=== PATIENT | female | born 1960 | race Caucasian/White ===

== ENCOUNTER → 2016-04-11 | Outpatient (CLI) | payer BC ==
[~2016-04-11] MED LIST: ADV25050 INHALATION; ALPR1TAB7 PO; FLUO20CA38 PO
--- NOTE | 2016-04-11 13:54 | RADRPT ---
PROCEDURE: US Thyroid. CLINICAL INDICATION: Enlarged thyroid. TECHNIQUE: High-resolution sonography of the thyroid was performed in the axial and sagittal plane s. COMPARISON: None. FINDINGS: The right lobe measures 3.9 x 1.3 x 1.3 cm. The left lobe measures 4.0 x 1.1 x 1.2 cm. The isthmus measures 0.1 cm. There is a hypoechoic nodule in the mid right lobe anteriorly medially measuring 1.1 x 0.7 x 0.9 cm. There is no other thyroid nodule. Thyroid echogenicity is normal. The thyroid is normal in size. IMPRESSION: 1. Hypoechoic nodule in the mid right lobe anteriorly measuring 1.1 cm in maximal dimension. Follo w-up ultrasound in 12 months advised. 2. Otherwise normal thyroid ultrasound. RPTAT: QQ .Ramirez Granados MD, Date Time Electronically viewed and signed by .Ramirez Granados MD, on 04/11/2016 13:53 .R/
== END | disposition home or self-care (01) ==
LOC: U/S 13:07
PROVIDERS: ATTEND Internal Medicine
DX: E04.1 Nontoxic single thyroid nodule (principal); E04.9 Nontoxic goiter, unspecified
CPT/HCPCS: 76536

== ENCOUNTER 2016-12-24 15:19 | Emergency (ER) | payer BC ==
[~2016-12-24] VITALS: Ht 152.4 cm; Wt 58.0 kg
[2016-12-24 15:22] VITALS: Ht 152.4 cm; Wt 58.0 kg
[2016-12-24] MEDS ORDERED: SOD CHLORIDE 0.9% 1,000 ML IV STA (16:06)
[2016-12-24] MEDS ORDERED: morphine 2 MG INJ IV STA (16:06)
[2016-12-24] MEDS ORDERED: ONDANSETRON 4 MG INJ IV STA ×2 (16:06→18:48)
--- NOTE | 2016-12-24 16:35 | ERD ---
ER Documentation Chief Complaint Date/Time DATE: 12/24/16 TIME: 16:31 Chief Complaint lt lower abd pain , lt side back pain since sunday HPI This is a 56-year-old female with a past medical history of asthma who presents to the emergency department complaining of lower back pain that has been present persistently for the past 48 hours. The patient denies any recent or remote trauma to her lower back. She states the pain began in the left flank region and has began to radiate to the left lower quadrant. The pain is exacerbated with movement. The pain is better when she lies supine. She has had no fevers or shaking or chills. She took Tylenol which improved the pain but did not completely resolve the pain. The patient states the pain is a sharp shooting pain. The pain is 8 out of 10 in intensity. She denies any similar episodes of the pain. She denies any frequency urgency or dysuria but did state she noticed warmth with urination. She denies any changes in her bladder or bowel frequency. She denies any saddle anesthesia. She denies any chest pain or pressure that radiates to the neck or back or jaw no shortness of breath at rest or exertion. ROS All systems reviewed and are negative except as per history of present illness. Medications Home Meds Active Scripts Cyclobenzaprine Hcl* (Cyclobenzaprine Hcl*) 10 Mg Tablet, 10 MG PO TID, #15 TAB Prov:JIM GONZALES 12/24/16 Reported Medications Alprazolam* (Alprazolam*) 1 Mg Tablet, 1 MG PO DAILY Y for ANXIETY, TAB 09/07/15 Fluoxetine Hcl* (Prozac*) 20 Mg Capsule, 20 MG PO DAILY, CAP 09/07/15 Salmeterol Xinaf/Fluticasone* (Advair*) 250-50 Diskus Inhaler, 1 INH INHALATION BID, #1 INHALER 09/07/15 Allergies Allergies: Coded Allergies: Sulfa (Sulfonamide Antibiotics) (Verified Allergy, Unknown, 04/18/14) aspirin (Verified Allergy, Unknown, 04/18/14) ibuprofen (Verified Allergy, Unknown, 04/18/14) PMhx/Soc Hx Respiratory Disorders: Yes (asthma) Hx Alcohol Use: No Hx Substance Use: No Hx Tobacco Use: No Smoking Status: Never smoker Physical Exam Vitals Vital Signs Date Time Temp Pulse Resp B/P Pulse Ox O2 Delivery O2 Flow Rate FiO2 12/24/16 19:50 67 16 121/74 99 Room Air 12/24/16 17:20 98.3 75 20 128/80 100 Room Air 12/24/16 15:22 99.0 101 18 139/77 98 Physical Exam Constitutional:Well-developed. Well-nourished. HEENT:Normocephalic. Atraumatic.Pupils were equal round reactive to light. Moist mucous membranes.No tonsillar exudates. Neck: No nuchal rigidity. No lymphadenopathy. No posterior cervical spine tenderness or step-offs. Respiratory: Not using accessory muscles of respiration.Lungs were clear to auscultation bilaterally. No rhonchi. No rales. No wheezing. Cardiovascular: Regular rate regular rhythm.No murmurs. No rubs were appreciated.S1, S2 normal. Distal pulses are palpable 2+ bilaterally. GI: Abdomen was soft. Left CVA tenderness with tenderness in the left lower quadrant. Non Distended. No pulsatile abdominal masses or bruits. No rebound. No guarding. Bowel sounds were present and normal. Muscle skeletal: Full range of motion of both the upper and lower extremities bilaterally.Normal muscle tone.No assymetrical calf tenderness or swelling. No tenderness with palpation or percussion of the thoracic or lumbar spinous processes Skin: No petechia, no purpura. No lesions on the palms or the soles of the feet. No maculopapular rash. NEURO: Patient was alert, awake, orientated x3.No facial droop. Gait observed and normal with no ataxia.Speech had regular rate and rhythm. No focal neurological deficits. Result Diagram: 12/24/16 1635 12/24/16 1635 Results 24 hrs Laboratory Tests Test 12/24/16 16:35 12/24/16 17:00 White Blood Count 11.410^3/ul Red Blood Count 4.9810^6/ul Hemoglobin 14.2g/dl Hematocrit 43.0% Mean Corpuscular Volume 86.3fl Mean Corpuscular Hemoglobin 28.5pg Mean Corpuscular Hemoglobin Concent 33.0g/dl Red Cell Distribution Width 12.5% Platelet Count 94426^3/UL Mean Platelet Volume 10.9fl Neutrophils % 67.0% Lymphocytes % 22.4% Monocytes % 6.4% Eosinophils % 2.9% Basophils % 0.5% Nucleated Red Blood Cells % 0.0/100WBC Neutrophils # 7.610^3/ul Lymphocytes # 2.610^3/ul Monocytes # 0.710^3/ul Eosinophils # 0.310^3/ul Basophils # 0.110^3/ul Nucleated Red Blood Cells # 0.010^3/ul Prothrombin Time 11.8Sec Prothrombin Time Ratio 0.9 INR International Normalized Ratio 0.87 Activated Partial Thromboplast Time 25.7Sec Sodium Level 143mmol/L Potassium Level 3.7mmol/L Chloride Level 105mmol/L Carbon Dioxide Level 28mmol/L Anion Gap 14 Blood Urea Nitrogen 14mg/dl Creatinine 0.79mg/dl Glucose Level 84mg/dl Calcium Level 9.6mg/dl Total Bilirubin 0.2mg/dl Direct Bilirubin 0.00mg/dl Indirect Bilirubin 0.2mg/dl Aspartate Amino Transf (AST/SGOT) 70IU/L Alanine Aminotransferase (ALT/SGPT) 104IU/L Alkaline Phosphatase 103IU/L Troponin I < 0.012ng/ml Total Protein 8.1g/dl Albumin 4.6g/dl Globulin 3.50g/dl Albumin/Globulin Ratio 1.31 Amylase Level 94U/L Lipase 122U/L Urine Color STRAW Urine Clarity CLEAR Urine pH 7.0 Urine Specific [place] 1.005 Urine Ketones NEGATIVEmg/dL Urine Nitrite NEGATIVEmg/dL Urine Bilirubin NEGATIVEmg/dL Urine Urobilinogen NEGATIVEmg/dL Urine Leukocyte Esterase NEGATIVELeu/ul Urine Hemoglobin NEGATIVEmg/dL Urine Glucose NEGATIVEmg/dL Urine Total Protein NEGATIVEmg/dl Current Medications Medications (Trade) Dose Ordered Sig/Edward Route PRN Reason Start Time Stop Time Status Last Admin Dose Admin Sodium Chloride (NS) 1,000 ml @ 1,000 mls/hr Q1H STAT IV 12/24/16 16:06 12/24/16 17:05 DC 12/24/16 16:58 Morphine Sulfate (morphine) 2 mg ONCE STAT IV 12/24/16 16:06 12/24/16 16:22 DC 12/24/16 16:27 Ondansetron HCl (Zofran Inj) 4 mg ONCE STAT IV 12/24/16 16:06 12/24/16 16:22 DC 12/24/16 16:27 Morphine Sulfate (morphine) 2 mg ONCE STAT IV 12/24/16 18:48 12/24/16 18:50 DC 12/24/16 18:56 Ondansetron HCl (Zofran Inj) 4 mg ONCE STAT IV 12/24/16 18:48 12/24/16 18:50 DC 12/24/16 18:56 Procedures/MDM The patient presented to the emergency department with back pain. My differential diagnosis included but was not limited to spinal origins of the pain such as fracture, osteomyelitis, epidural abscess, neoplasm, spondylolishtesis, discogenic, cauda equina syndrome or musculoligamentous. Nonspinal causes such as AAA, upper UTI, renal colic, aortic dissection, abdominal neoplasm were also considered as an etiology into their pain. Obtained a 12-lead EKG tracing to rule out atypical myocardial infarction. 12 Lead EKG tracing ordered and reviewed by myself showed: Normal sinus rhythm of 95 bpm and no arrhythmia. TX interval normal. QRS duration normal. No ST segment elevation No ST segment depression. No changes consistent with acute ischemia. She appeared to be in a significant amount discomfort. She was given intravenous morphine and Zofran for analgesia control. I did feel is necessary to obtain a CT scan without contrast to rule out obstructive uropathy. The scan reviewed by myself the radiologist indicated the followin. No acute inflammatory process seen in the abdomen or pelvis on this noncontrast examination. 2. Normal unenhanced appearance of the appendix. 3. Hiatal hernia. I also obtained an ultrasound of the pelvis to rule out a neoplastic mass as the patient is very concerned she has had a history of ovarian cyst. There is no evidence of hemorrhagic cyst. The patient's pain improved but did not completely resolved. I did indicate this to be likely muscle skeletal in origin with overlying muscle spasms. She was sent home with a muscle relaxant will follow up with her PCP. The patient was discharged home in fair condition. They were instructed to return to the emergency department at any time if there was any worsening of their condition. The patient stated they would follow up with their PCP in the next 24-48 hours to initiate a suitable medication regimen under the care of their PCP as well as to allow their PCP to monitor any drug reactions. The patient was discharged home with prescriptions after they gave informed consent to the new medication. They were also fully informed by myself on the adverse effects and adverse drug interactions in order to provide adequate safeguards to prevent possible adverse reactions to medications. Departure Diagnosis: Primary Impression: Flank pain Additional Impression: Back pain Back pain location: low back pain Chronicity: acute Back pain laterality: bilateral Sciatica presence: unspecified whether sciatica present Qualified Code: M54.5 - Acute bilateral low back pain, with sciatica presence unspecified Condition: JIM Thurman Dec 24, 2016 16:35
--- NOTE | 2016-12-24 16:54 | RADRPT ---
PROCEDURE: CT Abdomen and Pelvis without contrast. CLINICAL INDICATION: Abdominal pain TECHNIQUE: CT scan of the abdomen and pelvis without contrast was performed. The patient was scann ed without intravenous contrast. Coronal and sagittal reformatted images were obtained from the axi al source images. Use of iterative reconstruction technique was employed. Images were reviewed on a high-resolution PACS workstation. images. The calculated radiation dose measures 389.89 mGy centimet ers. The CTDI measures 7.28 mGy. One or more of the following dose reduction techniques were used: - Automated exposure control. - Adjustment of the mA and/or kV according to patient size . - Use of iterative reconstruction technique. Images were reviewed on a high-resolution PACS workstation COMPARISON: CT 09/07/2015 FINDINGS: CT abdomen: The lung bases are clear. The heart size is normal, without pericardial thickening or effusion. Th e liver is normal in size and density without focal mass or intrahepatic biliary dilatation. The sp price is normal in size and homogeneous in density. The stomach is partially collapsed, but is gross ly unremarkable. A moderate sized hiatal hernia is present. The pancreas as visualized is normal. T he gallbladder and biliary tree are unremarkable and there is no evidence for biliary dilatation. The adrenal glands are symmetric and normal. The kidneys are symmetrically unremarkable as well. N o renal calculus or obstructive uropathy or mass lesion is seen. The aorta is of normal caliber. Aortic vascular calcifications are present. Calcifications are seen of the distal spine artery is less likely a small focal aneurysm. There is no retroperitoneal lymph adenopathy. The keara hepatis region is clear. The bowel and mesentery, as visualized, are equally unremarkable. CT pelvis: The small bowel loops situated within the pelvis are unremarkable. The pelvic organs are normal. T he pelvic sidewalls and inguinal regions are clear. The sigmoid colon and rectum are not thickened or dilated. A normal appendix is identified. No mass, lymphadenopathy, or free fluid is seen. No a cute inflammation is seen. The surrounding osseous structures are remarkable for degenerative spondylosis of the spine. No ost eolytic or osteoblastic lesion is detected. IMPRESSION: 1. No acute inflammatory process seen in the abdomen or pelvis on this noncontrast examination. 2. Normal unenhanced appearance of the appendix. 3. Hiatal hernia. RPTAT: QQ .Jung Benavidez MD, MD Date Time Electronically viewed and signed by .Jung Benavidez MD, MD on 12/24/2016 16:53 .d/
[2016-12-24 17:07] LABS: ADD UMIC NO; UR ASCORBIC ACID 20 mg/dL (NEGATIVE); UR BILIRUBIN (Dip) NEGATIVE (NEGATIVE); UR BLOOD (Dip) NEGATIVE (NEGATIVE); UR CLARITY CLEAR (CLEAR); UR COLOR STRAW (YELLOW); UR GLUCOSE (Dip) NEGATIVE (NEGATIVE); UR KETONES (Dip) NEGATIVE (NEGATIVE); UR LEUKOCYTE ESTERASE (Dip) NEGATIVE Leu/ul (NEGATIVE); UR NITRITE (Dip) NEGATIVE (NEGATIVE); UR SPECIFIC GRAVITY (Dip) 1.005 (1.003-1.030); UR TOTAL PROTEIN (Dip) NEGATIVE (NEGATIVE); UR UROBILINOGEN (Dip) NEGATIVE (NEGATIVE)
[2016-12-24 17:23] LABS: BASOPHIL # 0.1 10^3/ul (0.0-0.1); BASOPHILS % 0.5 % (0.0-2.0); EOSINOPHILS # 0.3 10^3/ul (0.0-0.5); EOSINOPHILS % 2.9 % (0.0-7.0); HEMOGLOBIN 14.2 g/dl (12.0-16.0); LYMPHOCYTES # 2.6 10^3/ul (0.8-2.9); LYMPHOCYTES % 22.4 % (15.0-51.0); MEAN CORPUSCULAR HEMOGLOBIN 28.5 pg (29.0-33.0); MEAN CORPUSCULAR VOLUME 86.3 fl (82.0-101.0); MEAN PLATELET VOLUME 10.9 fl (7.4-10.4); MONOCYTE # 0.7 10^3/ul (0.3-0.9); MONOCYTES % 6.4 % (0.0-11.0); NEUTROPHIL # 7.6 10^3/ul (1.6-7.5); PLATELET COUNT 190 10^3/UL (140-415); RED BLOOD COUNT 4.98 10^6/ul (4.20-5.40); RED CELL DISTRIBUTION WIDTH 12.5 % (11.5-14.5); WHITE BLOOD COUNT 11.4 10^3/ul (4.8-10.8)
[2016-12-24 17:37] LABS: INR 0.87; PROTIME 11.8 Sec (12.2-14.2); PT RATIO 0.9
[2016-12-24 17:38] LABS: PARTIAL THROMBOPLASTIN TIME 25.7 Sec (25.0-35.0)
[2016-12-24 17:40] LABS: ALANINE AMINOTRANSFERASE 104 IU/L (13-69); ALBUMIN 4.6 g/dl (3.3-4.9); ALBUMIN/GLOBULIN RATIO 1.31; ALKALINE PHOSPHATASE 103 IU/L (42-121); AMYLASE 94 U/L (11-123); ANION GAP 14 (8-16); ASPARTATE AMINO TRANSFERASE 70 IU/L (15-46); BILIRUBIN,INDIRECT 0.2 mg/dl (0-1.1); BILIRUBIN,TOTAL 0.2 mg/dl (0.2-1.3); BLOOD UREA NITROGEN 14 mg/dl (7-20); CALCIUM 9.6 mg/dl (8.4-10.2); CARBON DIOXIDE 28 mmol/L (21-31); CHLORIDE 105 mmol/L (97-110); CREATININE 0.79 mg/dl (0.44-1.00); GLUCOSE 84 mg/dl (70-220); POTASSIUM 3.7 mmol/L (3.5-5.1); SODIUM 143 mmol/L (135-144); TOTAL PROTEIN 8.1 g/dl (6.1-8.1)
[2016-12-24 17:53] LABS: TROPONIN-I < 0.012 ng/ml (0.00-0.12)
[2016-12-24] MEDS ORDERED: morphine 4 MG/ML VIAL IV STA (18:48)
--- NOTE | 2016-12-24 21:47 | RADRPT ---
PROCEDURE: US Pelvis CLINICAL INDICATION: Pelvic pain TECHNIQUE: Sonographic evaluation of the pelvis was performed utilizing transabdominal technique. Curved array transabdominal transducer technique was utilized. Images were reviewed on the [employer] PACS workstation. COMPARISON: CT abdomen and pelvis same day FINDINGS: The uterus is normal in size, echogenicity, and morphology measuring 7.6 x 3 x 4 cm in dimension. T he uterus is anteverted in normal position. The endometrium measures 4-5 mm in diameter. The norm al trilaminar stripe of the endometrium is preserved. The right ovary measures 3 x 2.6 x 2.6 cm in dimension. The left ovary measures 2.3 x 1.8 x 2.6 cm in dimension. The ovaries are symmetric in size, echogenicity, and morphology. There are no adnexa l masses. There is no significant free fluid in the pelvis. No other incidental abnormality is iden tified. IMPRESSION: 1. Unremarkable ultrasound of the pelvis. RPTAT: HHO .Mimi Suero MD, MD Date Time Electronically viewed and signed by .Mimi Suero MD, on 12/24/2016 21:47 .O/
[2016-12-24] MEDS ORDERED: CYCL-319 PO (22:15)
[2016-12-24 22:25] VITALS: BP 135/76; PULSE 67; RESP 16; TEMP 98.3
== END 2016-12-24 22:26 | disposition home or self-care (01) ==
LOC: E/R 15:19
DX: R10.32 Left lower quadrant pain (principal); M54.5 Low back pain; J45.909 Unspecified asthma, uncomplicated
CPT/HCPCS: 74176; 76830; 76856; 80053; 81003; 82150; 83690; 84484; 85025; 85610; 85730; 96374; 96375; 96376; 99285; J2270; J2405; J7030

== ENCOUNTER 2017-05-21 11:02 | Emergency (ER) | END 2017-05-21 13:58 | disposition home or self-care (01) ==